=== PATIENT | female | born 2000 | race Caucasian/White ===

== ENCOUNTER 2019-05-22 12:12 | Inpatient (IN) | payer OTHER ==
[~2019-05-22] VITALS: Ht 160 cm; Wt 60.4 kg
[2019-05-22] VITALS (16 sets, daily range): BP systolic 104–134; BP diastolic 52–67; PULSE 80–136; RESP 16–25; Ht 160 cm; Wt 60.4 kg
[~2019-05-22 12:12] MED LIST: AMOX1TAB10 PO; DOCU-144 PO; IBUP-1542 PO
[2019-05-22] MEDS ORDERED: ONDANSETRON 4 MG INJ IV STA (13:11)
[2019-05-22] MEDS ORDERED: SOD CHLORIDE 0.9% 1,000 ML IV STA (13:11)
[2019-05-22] MEDS ORDERED: morphine 4 MG/ML VIAL IV STA (13:11)
[2019-05-22] MEDS ORDERED: SOD CHLORIDE 0.9% 100 ML ONE (14:13)
[2019-05-22] MEDS ORDERED: IOHEXOL 300MG/ML 150 ML BTL ONE (14:13)
[2019-05-22] MEDS ORDERED: PIPER-TAZO 3.375 GM IV (PMX) 100 ML IVPB STA (15:03)
[2019-05-22] MEDS ORDERED: D5W-0.45 NACL + KCL 20 MEQ 1,000 ML IV STA (15:03)
--- NOTE | 2019-05-22 15:28 | ERD ---
ER Documentation Chief Complaint Chief Complaint RLQ ABD PAIN WITH NAUSEA STARTING TODAY. HPI 19-year-old female presenting with right lower quadrant pain that started last night and has progressively worsened. The pain is a 9 out of 10, stabbing, nonradiating, with associated nausea and vomiting. worsened by movement , No alleviating factors. She does feel subjective fevers and chills. No diarrhea or constipation. No vaginal discharge or bleeding. Last menstrual period was about 2 weeks ago. ROS All systems reviewed and are negative except as per history of present illness. Medications Home Meds No Active Prescriptions or Reported Meds Allergies Allergies: Coded Allergies: No Known Allergy (Unverified , 05/22/19) PMhx/Soc Medical and Surgical Hx: pt denies Medical Hx, pt denies Surgical Hx Hx Alcohol Use: No Hx Substance Use: No Hx Tobacco Use: No Smoking Status: Never smoker FmHx Family History: No diabetes Physical Exam Vitals Vital Signs Date Temp Pulse Resp B/P (MAP) Pulse Ox O2 O2 Flow FiO2 Time Delivery Rate 05/22/19 103 18 118/78 99 Room Air 17:00 (91) 05/22/19 99 20 116/83 99 Room Air 16:00 (94) 05/22/19 97.0 90 16 110/63 99 12:41 (79) Physical Exam Const: No acute distress Head: Atraumatic Eyes: Normal Conjunctiva ENT: Normal External Ears, Nose and Mouth. Neck: Full range of motion. No meningismus. Resp: Clear to auscultation bilaterally Cardio: Regular rate and rhythm, no murmurs Abd: Soft, tenderness to palpation McBurney's point with no generalized peritonitis. Non distended. Normal bowel sounds Skin: No petechiae or rashes Back: No midline or flank tenderness Ext: No cyanosis, or edema Neur: Awake and alert Psych: Normal Mood and Affect Result Diagram: 05/22/19 1322 05/22/19 1322 Results 24 hrs Laboratory Tests Test 05/22/19 13:22 05/22/19 13:32 05/22/19 15:49 White Blood Count 20.1 10^3/ul Red Blood Count 5.11 10^6/ul Hemoglobin 13.8 g/dl Hematocrit 42.2 % Mean Corpuscular Volume 82.6 fl Mean Corpuscular Hemoglobin 27.0 pg Mean Corpuscular 32.7 g/dl Hemoglobin Concent Red Cell Distribution Width 12.7 % Platelet Count 156 10^3/UL Mean Platelet Volume 12.1 fl Immature Granulocytes % 0.400 % Neutrophils % 90.2 % Segmented Neutrophils % (Manual) 83 % Band Neutrophils % (Manual) 9 % Lymphocytes % 6.2 % Lymphocytes % (Manual) 6 % Monocytes % 2.5 % Monocytes % (Manual) 2 % Eosinophils % 0.4 % Basophils % 0.3 % Nucleated Red Blood Cells % 0.0 /100WBC Immature Granulocytes # 0.080 10^3/ul Neutrophils # 18.1 10^3/ul Neutrophils # (Manual) 17.0 10^3/ul Band Neutrophils # 1.8 10^3/ul Lymphocytes (Manual) 1.2 10^3/ul Lymphocytes # 1.2 10^3/ul Monocytes # 0.5 10^3/ul Monocytes # (Manual) 0.4 10^3/ul Eosinophils # 0.1 10^3/ul Basophils # 0.1 10^3/ul Nucleated Red Blood Cells # 0.0 10^3/ul Platelet Estimate NORMAL Giant Platelets 1 % Poikilocytosis 1+ Anisocytosis 1+ Urine Color YELLOW Urine Clarity CLOUDY Urine pH 6.0 Urine Specific [place] 1.023 Urine Ketones 1+ mg/dL Urine Nitrite NEGATIVE mg/dL Urine Bilirubin NEGATIVE mg/dL Urine Urobilinogen NEGATIVE mg/dL Urine Leukocyte Esterase 2+ Myriam/ul Urine Microscopic RBC 2 /HPF Urine Microscopic WBC 9 /HPF Urine Squamous Epithelial Cells MODERATE /HPF Urine Bacteria FEW /HPF Urine Mucus FEW /HPF Urine Hemoglobin NEGATIVE mg/dL Urine Glucose NEGATIVE mg/dL Urine Total Protein NEGATIVE mg/dl Sodium Level 139 mmol/L Potassium Level 4.3 mmol/L Chloride Level 108 mmol/L Carbon Dioxide Level 18 mmol/L Anion Gap 13 Blood Urea Nitrogen 12 mg/dl Creatinine 0.88 mg/dl Est Glomerular Filtrat > 60 mL/min Rate mL/min Glucose Level 108 mg/dl Calcium Level 9.8 mg/dl Total Bilirubin 0.3 mg/dl Direct Bilirubin 0.00 mg/dl Indirect Bilirubin 0.3 mg/dl Aspartate Amino Transf (AST/SGOT) 49 IU/L Alanine 37 IU/L Aminotransferase (ALT/SGPT) Alkaline Phosphatase 67 IU/L Total Protein 8.8 g/dl Albumin 4.6 g/dl Globulin 4.20 g/dl Albumin/Globulin Ratio 1.09 POC Beta HCG, Qualitative NEGATIVE POC Venous Lactate 1.4 mmol/L Current Medications Medications Dose Sig/Marisabel Start Time Status Last (Trade) Ordered Route PRN Stop Time Admin Dose Reason Admin Sodium 1,000 ml @ Q1H STAT 05/22/19 DC 05/22/19 Chloride 1,000 mls/hr IV 13:11 13:24 05/22/19 14:10 Morphine 4 mg ONCE STAT 05/22/19 DC 05/22/19 Sulfate IV 13:11 13:24 (morphine) 05/22/19 13:14 Ondansetron 4 mg ONCE STAT 05/22/19 DC 05/22/19 HCl (Zofran IV 13:11 13:24 Inj) 05/22/19 13:14 IV Flush 10 ml STK-MED 05/22/19 DC (NS 10 ml) ONCE .ROUTE 14:13 05/22/19 14:14 Sodium 100 ml @ ud STK-MED 05/22/19 DC Chloride ONCE .ROUTE 14:13 05/22/19 14:14 Iohexol 150 ml STK-MED 05/22/19 DC (Omnipaque ONCE .ROUTE 14:13 300mg/ ml) 05/22/19 14:14 Potassium 1,000 ml @ Q8H STAT 05/22/19 05/22/19 Chloride/Dext 125 mls/hr IV 15:03 15:19 manuel/ Sod Cl 05/22/19 23:02 Piperacillin 100 ml @ ONCE STAT 05/22/19 DC 05/22/19 Sod/ 200 mls/hr IVPB 15:03 15:19 Tazobactam 05/22/19 15:32 Sod Ondansetron 4 mg BRIDGE ORDER 05/22/19 HCl (Zofran PRN IV 15:30 Inj) NAUSEA/VOMITI 05/23/19 15:29 NG 650 mg ER BRIDGE 05/22/19 Acetaminophen PRN PO 15:30 (Tylenol .MILD PAIN 05/23/19 15:29 Tab) 1-3 OR TEMP Procedures/MDM EMERGENT LABS AND DIAGNOSTIC STUDIES: Lab Results above were reviewed and interpreted by me. CBC: leukocytosis, consistent with acute infection CMP: No evidence of clinically significant electrolyte abnormality, acidosis, renal failure, hypoglycemia, liver disease, or biliary obstruction negative UA: no evidence of infection Lactate within normal limits, no evidence of severe sepsis or septic shock Radiology Results as interpreted by Radiology below were reviewed by Maximiliano Robbins MD: CT abdomen and pelvis shows acute appendicitis Initial Nursing notes reviewed. Previous Medical Records requested via the Electronic Health Record. EMERGENCY DEPARTMENT COURSE / MEDICAL DECISION MAKING: Patient presenting with right lower quadrant pain and work-up consistent with acute appendicitis. No evidence of severe sepsis or septic shock. Spoke with Dr. Gilbert, the surgeon on-call, who is aware of the patient. IV placed, antibiotics given. Pain well controlled with pain medications. She will be admitted to Dr. Rojas due to her insurance. Departure Diagnosis: Primary Impression: Acute appendicitis Acute appendicitis type: with localized peritonitis Appendicitis gangrene presence: without gangrene Appendicitis perforation presence: without perforation Appendicitis abscess presence: without abscess Qualified Co leonardo: K35.30 - Acute appendicitis with localized peritonitis, without perforation or gangrene Condition: ALEXANDER Modi MD May 22, 2019 15:28
[2019-05-22] MEDS ORDERED: ACETAMINOPHEN 325 MG TAB PO PRN ×2 (15:30→21:30)
[2019-05-22] MEDS ORDERED: ONDANSETRON 4 MG INJ IV PRN ×3 (15:30→21:30)
--- NOTE | 2019-05-22 18:28 | CONS ---
Assessment/Plan Assessment/Plan Assessment/Plan (Daily) signs and symptoms conmsistent with acute appenduicit s, without sign of rupture rec laparoscopic appendectomy open , possible open details , risks benefits discussed . patient wishes to proceed . Consultation Date/Type/Reason Admit Date/Time May 22, 2019 at 15:21 Date of Consultation: May 22, 2019 Type of Consult general surgery Reason for Consultation abdominal pain , suspect appendicitis by CT Date/Time of Note DATE: 05/22/19 TIME: 18:23 Hx of Present Illness patient came to ER with pain since last night , worsening over night , nausea , miod abdomen , migrating to RLQ / CT consistent with acute appendciitis Past Medical History Home Meds No Active Prescriptions or Reported Meds Medications Current Medications Potassium Chloride/Dextrose/ Sod Cl 1,000 ml @ 125 mls/hr Q8H STAT IV Last administered on 05/22/19at 15:19; Admin Dose 125 MLS/HR; Start 05/22/19 at 15:03; Stop 05/22/19 at 23:02 Ondansetron HCl (Zofran Inj) 4 mg BRIDGE ORDER PRN IV NAUSEA/VOMITING; Start 05/22/19 at 15:30; Stop 05/23/19 at 15:29 Acetaminophen (Tylenol Tab) 650 mg ER BRIDGE PRN PO .MILD PAIN 1-3 OR TEMP; Start 05/22/19 at 15:30; Stop 05/23/19 at 15:29 Allergies: Coded Allergies: No Known Allergy (Unverified , 05/22/19) Social History Smoking Status: Never smoker Exam/Review of Systems Exam Vitals Vital Signs Date Temp Pulse Resp B/P (MAP) Pulse Ox O2 O2 Flow FiO2 Time Delivery Rate 05/22/19 98.8 94 18 126/67 98 18:05 (86) 05/22/19 Room Air 17:00 Exam awake and alert , complining of right sided abdominal pain lungs clear Cor reg rate and rhtym Abd soft , moderate tenderness right lowe quadrant Results Result Diagram: 05/22/19 1322 05/22/19 1322 Results 24hrs Laboratory Tests Test 05/22/19 13:22 05/22/19 13:32 05/22/19 15:49 White Blood Count 20.1 H Red Blood Count 5.11 Hemoglobin 13.8 Hematocrit 42.2 Mean Corpuscular Volume 82.6 Mean Corpuscular Hemoglobin 27.0 L Mean Corpuscular Hemoglobin Concent 32.7 Red Cell Distribution Width 12.7 Platelet Count 156 Mean Platelet Volume 12.1 H Immature Granulocytes % 0.400 Neutrophils % 90.2 H Segmented Neutrophils % (Manual) 83 H Band Neutrophils % (Manual) 9 Lymphocytes % 6.2 L Lymphocytes % (Manual) 6 L Monocytes % 2.5 Monocytes % (Manual) 2 Eosinophils % 0.4 Basophils % 0.3 Nucleated Red Blood Cells % 0.0 Immature Granulocytes # 0.080 H Neutrophils # 18.1 H Neutrophils # (Manual) 17.0 H Band Neutrophils # 1.8 H Lymphocytes (Manual) 1.2 Lymphocytes # 1.2 Monocytes # 0.5 Monocytes # (Manual) 0.4 Eosinophils # 0.1 Basophils # 0.1 Nucleated Red Blood Cells # 0.0 Platelet Estimate NORMAL Giant Platelets 1 H Poikilocytosis 1+ Anisocytosis 1+ Urine Color YELLOW Urine Clarity CLOUDY A Urine pH 6.0 Urine Specific [place] 1.023 Urine Ketones 1+ H Urine Nitrite NEGATIVE Urine Bilirubin NEGATIVE Urine Urobilinogen NEGATIVE Urine Leukocyte Esterase 2+ H Urine Microscopic RBC 2 Urine Microscopic WBC 9 H Urine Squamous Epithelial Cells MODERATE Urine Bacteria FEW A Urine Mucus FEW A Urine Hemoglobin NEGATIVE Urine Glucose NEGATIVE Urine Total Protein NEGATIVE Sodium Level 139 Potassium Level 4.3 Chloride Level 108 Carbon Dioxide Level 18 L Anion Gap 13 Blood Urea Nitrogen 12 Creatinine 0.88 Est Glomerular Filtrat Rate mL/min > 60 Glucose Level 108 Calcium Level 9.8 Total Bilirubin 0.3 Direct Bilirubin 0.00 Indirect Bilirubin 0.3 Aspartate Amino Transf (AST/SGOT) 49 H Alanine Aminotransferase (ALT/SGPT) 37 Alkaline Phosphatase 67 Total Protein 8.8 H Albumin 4.6 Globulin 4.20 H Albumin/Globulin Ratio 1.09 POC Beta HCG, Qualitative NEGATIVE POC Venous Lactate 1.4 Medications Medication Current Medications Potassium Chloride/Dextrose/ Sod Cl 1,000 ml @ 125 mls/hr Q8H STAT IV Last administered on 05/22/19at 15:19; Admin Dose 125 MLS/HR; Start 05/22/19 at 15:03; Stop 05/22/19 at 23:02 Ondansetron HCl (Zofran Inj) 4 mg BRIDGE ORDER PRN IV NAUSEA/VOMITING; Start 05/22/19 at 15:30; Stop 05/23/19 at 15:29 Acetaminophen (Tylenol Tab) 650 mg ER BRIDGE PRN PO .MILD PAIN 1-3 OR TEMP; Start 05/22/19 at 15:30; Stop 05/23/19 at 15:29 SHANI BRANDT MD May 22, 2019 18:28
[2019-05-22] MEDS ORDERED: SOD CHLORIDE 0.9% 1,000 ML IV SCH (19:00)
[2019-05-22] MEDS ORDERED: morphine 2 MG INJ IV PRN (19:00)
[2019-05-22] MEDS ORDERED: BUPIVACAINE 0.25%/EPI (SDV) 30 ML INJ ONE ×2 (19:23→19:28)
[2019-05-22] MEDS ORDERED: FENTAnyl 50 MCG/ML VIAL ONE ×2 (19:28→20:27)
[2019-05-22] MEDS ORDERED: GLYCOPYRROLATE 0.4 MG INJ ONE (19:28)
[2019-05-22] MEDS ORDERED: CEFAZOLIN 1 GM INJ ONE (19:28)
[2019-05-22] MEDS ORDERED: NEOSTIGMINE 3 MG/3 ML SYRINGE ONE (19:28)
[2019-05-22] MEDS ORDERED: ROCURONIUM 50 MG INJ ONE (19:28)
[2019-05-22] MEDS ORDERED: PROPOFOL 20 ML ONE (19:28)
[2019-05-22] MEDS ORDERED: DEXAMETHASONE 4 MG/ML 5 ML INJ ONE (19:28)
[2019-05-22] MEDS ORDERED: ONDANSETRON 4 MG INJ ONE (19:28)
[2019-05-22] MEDS ORDERED: MIDAZOLAM 1 MG/ML 2 ML INJ ONE (19:28)
[2019-05-22] MEDS ORDERED: ROPIVACAINE 0.5 % 30 ML VIAL ONE (19:32)
--- NOTE | 2019-05-22 19:40 | PREAC ---
Date/Time of Note Date/Time of Note DATE: 05/22/19 TIME: 19:39 Anesthesia Eval and Record Evaluation Time Pre-Procedure Interview DATE: 05/22/19 TIME: 19:39 Age 19 Sex female NPO: 8 hrs Preoperative diagnosis ACUTE APPENDICITIS Planned procedure LAP APPENDECTOMY Past Medical History Past Medical History: None Surgery & Anesthesia Issues No known issue Meds Anticoagulation: No Beta Alba within 24 hr: No Reason Beta Alba not given: Pt. not on B-Alba No Active Prescriptions or Reported Meds Current Medications Sodium Chloride 1,000 ml @ 100 mls/hr Q10H IV ; Start 05/22/19 at 19:00 Piperacillin Sod/ Tazobactam Sod 100 ml @ 200 mls/hr Q8 IVPB ; Start 05/22/19 at 22:00 Ondansetron HCl (Zofran Inj) 4 mg Q6H PRN IV NAUSEA AND/OR VOMITING; Start 05/22/19 at 19:00 Pantoprazole (Protonix Iv) 40 mg DAILY@06 IV ; Start 05/23/19 at 06:00 Morphine Sulfate (morphine) 2 mg Q4H PRN IV SEVERE PAIN LEVEL 7-10; Start 05/22/19 at 19:00 Meds reviewed: Yes Allergies Coded Allergies: No Known Allergy (Unverified , 05/22/19) Allergies Reviewed: Yes Labs/Studies Labs Reviewed: Reviewed by anesthesiologist Result Diagram: 05/22/19 1322 05/22/19 1322 Laboratory Tests 05/22/19 13:22 test: Negative Pre-procedure Exam Last vitals Vital Signs Date Temp Pulse Resp B/P (MAP) Pulse Ox O2 O2 Flow FiO2 Time Delivery Rate 05/22/19 98.8 94 18 126/67 98 18:05 (86) 05/22/19 Room Air 17:00 Airway: Adequate mouth opening, Adequate thyromental dist Mallampati: Mallampati II Teeth: Normal Lung: Normal Heart: Normal ASA Physical Status ASA physical status: 1 Emergency: None Planned Anesthetic General/MAC: ETT Nerve block: TAP (bilateral) Planned Pain Management Parenteral pain med Pre-operative Attestations Prior to commencing anesthesia and surgery, the patient was re-evaluated, there was verification of: *The patient's identity *The results of appropriate recent lab work and preoperative vital signs *The above evaluation not changing prior to induction *Anesthetic plan, risk benefits, alternative and complications discussed with patient/family; questions answered; patient/family understands, accepts and wishes to proceed. Mohan Reynoso M.D. May 22, 2019 19:40
[2019-05-22] MEDS ORDERED: KETOROLAC 30 MG INJ ONE (20:27)
--- NOTE | 2019-05-22 21:10 | OPR ---
Date/Time of Note Date/Time of Note DATE: 05/22/19 TIME: 21:06 Operative Report Free Text/Dictation Operative report Procedure Date: May 22, 2019 Preoperative Diagnosis Acute appendicitis Postoperative Diagnosis Acute separative appendicitis Operation/Procedure Performed Laparoscopic appendectomy Surgeon Shani Gilbert MD see signature line Supervisor Felling Bucking None Anesthesia Type: general Anesthesiologist: Mohan Reynoso M.D. Estimated Blood Loss: minimal Transfusion none Specimen Appendix Grafts/Implants none Tubes/Drains None Complications none Pt Condition Post Procedure: stable Disposition: PACU Indications Abdominal pain progressive over 24 hours patient presented to the emergency room evaluation including imaging and lab tests revealed highly suspicious for acute appendicitis surgical consultation obtained I recommended that the patient undergo upper scopic appendectomy details the procedure risk benefits alternatives were discussed patient agreed to proceed and she was brought promptly to the operating room Procedure Description Patient was brought to the operating placed supine position general she is administered with intubation patient prepped draped standard sterile fashion o rogastric tube inserted by anesthesia timeout was completed Veress needle was used left upper quadrant Haider's point insufflation delivered to maintain pneumoperitoneum 50 mils mercury throughout the procedure small stab incision was made just above the umbilicus and a 5 mm trocar was inserted under direct visualization with 35 Corley laparoscope the Veress needle was removed and infraumbilical 5 Corley trocar suprapubic 1200 trocar were inserted next atraumatic graspers used to explore the right lower quadrant the appendix was quickly identified with a marked dilated thickened fibrinous covered distal third. Omentum was stuck to this was peeled away bluntly. A window was made in the mesoappendix with a [place] dissector and a Platea 45 mm vascular car tridge used to divide the appendix at the base. Hook cautery was then used to score the peritoneum on the lateral side of the appendix and the appendix was then brought elevated and a second application of the stapler was used to divide the mesoappendix. A small oozing on the staple line was controlled with monopolar cautery. A specimen bag was inserted through the 12 mm port and the appendix was in this as it was removed. Final inspection for hemostasis showed good hemostasis. The pneumoperitoneum was allowed to escape as the trochars were watery direct visualization were removed skin incisions were closed with 4- 0 Monocryl Dermabond for skin. Patient tolerated procedure well no complications patient was explained the operative brought recovery in stable condition SHANI GILBERT MD May 22, 2019 21:10
[2019-05-22] MEDS ORDERED: MEPERIDINE 25 MG INJ ONE (21:11)
--- NOTE | 2019-05-22 21:14 | PAC ---
Date/Time of Note Date/Time of Note DATE: 05/22/19 TIME: 21:14 Post-Anesthesia Notes Post-Anesthesia Note Last documented vital signs Vital Signs Date Temp Pulse Resp B/P (MAP) Pulse Ox O2 O2 Flow FiO2 Time Delivery Rate 05/22/19 98.0 21:13 05/22/19 93 16 116/63 100 19:18 (80) 05/22/19 Room Air 17:00 Activity: WNL Respiratory function: WNL Cardiovascular function: WNL Mental status: Baseline Pain reasonably controlled: Yes Hydration appropriate: Yes Nausea/Vomiting absent: Yes Mohan Reynoso M.D. May 22, 2019 21:14
[2019-05-22] MEDS ORDERED: KETOROLAC 15 MG INJ IV PRN (21:30)
[2019-05-22] MEDS ORDERED: FENTAnyl 50 MCG/ML VIAL IV PRN (21:30)
[2019-05-22] MEDS ORDERED: HYDROmorphONE 1 MG/5 ML IV SYRINGE IV PRN (21:30)
[2019-05-22] MEDS: PIPER-TAZO 3.375 GM IV (PMX) 100 ML IVPB SCH (22:00)
[2019-05-22] MEDS ORDERED: MEPERIDINE 25 MG INJ IV PRN (22:00)
[2019-05-22] MEDS: D5-NS + KCL 20 MEQ 1,000 ML IV SCH (23:04)
[2019-05-23 00:10] VITALS: BP 102/55; PULSE 76; RESP 16
[2019-05-23 01:20] VITALS: BP 106/56; PULSE 81; RESP 15
[2019-05-23] MEDS: PIPER-TAZO 3.375 GM IV (PMX) 100 ML IVPB SCH ×2 (05:42→14:39)
[2019-05-23] MEDS ORDERED: PANTOPRAZOLE 40 MG INJ IV SCH (06:00)
[2019-05-23] MEDS: D5-NS + KCL 20 MEQ 1,000 ML IV SCH ×2 (06:15→12:10)
[2019-05-23 07:33] VITALS: BP 109/58; PULSE 73; RESP 17
--- NOTE | 2019-05-23 12:34 | QN ---
Documentation Comment pt seen and examined sp Lap appendectomy pod#1 on soft diet exam: minimal tenderness wbc improved from 20>9 Mild UTI dc home if ok with MORAIMA Carvalho MD May 23, 2019 12:33
--- NOTE | 2019-05-23 12:35 | PDOCDIS ---
Discharge Instructions DIAGNOSIS Discharge Diagnosis acute appendictis s/p appendectomy mild UTI CONDITION [id number] Patient Condition: [id number] Good HOME CARE INSTRUCTIONS: [id number] Special Diet: [id number] SOFT DIET ACTIVITY: [id number] Activity Restrictions: [id number] Slowly Increase Activity Rest between Activity Avoid heavy lifting FOLLOW UP/APPOINTMENTS Follow-up Plan FU PCP in 1-[address] Gilbert in 1 week keep surgical site clean return tO ER if has abdominal pain/fevers/chills MORAIMA KWOK MD May 23, 2019 12:35
[2019-05-23 13:43] VITALS: BP 100/58; PULSE 65; RESP 16
--- NOTE | 2019-05-23 13:47 | HP ---
DATE OF ADMISSION: 05/22/2019 The History and Physical is dictated late as I and Dr. Alvarado were not informed of the admission. The patient was informed that the patient is being admitted when the patient was on the floor, patient h ad already been seen by surgeon yesterday. HISTORY OF PRESENT ILLNESS: This is a 19-year-old female who has no past medical history who present ed to the emergency department complaining of epigastric pain and then radiating to the right lower q uadrant for 1 day. Patient was in usual state of health and started having some epigastric pain and then pain radiated to the right lower quadrant. The patient was also having some nausea and vomiting . 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 She does have some subjective chills and fevers. On admission, vital signs show temperature 97.0, pulse 90, respirations 18, blood pressure 110/63. White count was 20.1, neut rophils were 83, BUN and creatinine within normal limits. test was negative. LFTs within normal limits. The patient had a CT of the abdomen and pelvis that showed acute appendicitis, trace free fluid in the pelvis. No intraperitoneal free air or abscess. Patient went for surgery with Dr. Gilbert and had acute suppurative appendicitis, had laparoscopic appendectomy that was performed on 0 05/22/2019 and currently patient denies any pain. PAST MEDICAL HISTORY: None. ALLERGIES: NONE. HOME MEDICATIONS: None. PAST SURGICAL HISTORY: None. SOCIAL HISTORY: Denies any history of smoking, alcohol or any drug use. 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 Lives with family. REVIEW OF SYSTEMS: Abdominal pain is resolved currently, no episodes of nausea, vomiting, diarrhea. No fevers, chills, no headache, no blurry vision, no chest pain, no shortness of breath, no hemateme sis, melena, bright red per rectum. No neuro deficits. PHYSICAL EXAMINATION: VITAL SIGNS: Currently, blood pressure 109/58, afebrile, pulse 73, respiratory rate 17, saturating 9 6%. GENERAL: The patient is awake, alert, oriented, does not appear to be in any acute distress. HEENT: Pupils equal, round, reactive to light. NECK: Supple, no JVD. HEART: Regular rhythm. LUNGS: Clear to auscultate bilaterally. ABDOMEN: The patient has well-healed surgical scars with minimal tenderness. Positive bowel sounds. EXTREMITIES: No clubbing, cyanosis, or edema. The patient had multiple tattoos present on the arms. DIAGNOSTIC DATA: BMP within normal limit. White count was 20, currently 9.2, hemoglobin 12.2, plate let count 204. UA showed 9 WBCs, 1+ ketones, few bacteria. A CT of the abdomen and pelvis, acute ap pendicitis. ASSESSMENT AND PLAN: This is a 19-year-old female with: 1. Acute appendicitis status post laparoscopic appendectomy. 2. Leukocytosis secondary to #1. 3. Mild urinary tract infection. PLAN: At this period of time, the patient is admitted to med/surg. The patient is tolerating the di et. The patient is on IV antibiotics, ibuprofen and fluids. We will check with Dr. Gilbert if the pa tient can be discharged today. Rest of the treatment will depend on the patient's hospitalization co marya. Dictated By: MORAIMA JOHNSON/ROMAN Conf#: [id number] DID#: [id number] CC: JENNIFER ALVARADO MD;*EndCC*
--- NOTE | 2019-05-24 06:48 | DS ---
DATE OF ADMISSION: 05/22/2019 DATE OF DISCHARGE: 05/23/2019 HISTORY OF PRESENT ILLNESS AND HOSPITAL COURSE: This is a 19-year-old female who presented to the Em ergency Department complaining of epigastric pain radiating to the right lower quadrant for 1 day. O n admission, patient had a CT of the abdomen and pelvis that showed acute appendicitis, trace free fl uid in the pelvis. White count was 20,000. The patient was seen by Dr. Gilbert and went for appendec alexys. Postop, the patient was doing much better. Her pain was better. Leukocytosis had improved. The patient was given IV Zosyn. Currently, the patient is able to tolerate the diet and is able to a mbulate and is stable to be discharged home. Patient also had mild UTI on the UA and was currently b eing discharged with amoxicillin for 3 days. FINAL DISCHARGE DIAGNOSES: 1. Acute appendicitis status post appendectomy. 2. Leukocytosis from , due to appendicitis. 3. Mild urinary tract infection. DISCHARGE CONDITION: Stable. DISCHARGE DIET: Regular, soft diet. RECOMMENDATIONS: The patient was instructed to follow up with PCP in 1 to 2 weeks and follow up with surgery, Dr. Gilbert in 1 to 2 weeks and return to the ER if she has severe abdominal pain, nausea, v omiting, fevers and chills. DISCHARGE MEDICATION: 1. Amoxicillin 1 tab p.o. b.i.d. for 3 days. 2. Colace 100 mg p.o. b.i.d. p.r.n. constipation. 3. Ibuprofen p.r.n. pain. Dictated By: MORAIMA JOHNSON/ROMAN Conf#: [id number] DID#: [id number]
[2019-05-24] MEDS ORDERED: IBUPROFEN 600 MG TAB PO PRN (21:30)
== END 2019-05-23 16:57 | disposition home or self-care (01) | DRG 342 ==
LOC: FTE 12:12 → 2NE 15:21
PROVIDERS: ADMIT Internal Medicine Nephrology; ATTEND Internal Medicine Nephrology
PROC: 0DTJ4ZZ Resection of Appendix, Percutaneous Endoscopic Approach (ICD-10-PCS; principal; 2019-05-22 20:00)
DX: K35.80 Unspecified acute appendicitis (principal); N39.0 Urinary tract infection, site not specified
CPT/HCPCS: 36415; 74177; 80048; 80053; 81001; 81025; 83605; 85025; 88304; 96374; 96375; C9113; J0690; J1100; J1885; J2175; J2250; J2270; J2405; J2543; J2710; J2795; J3010; J3480; J7030; Q9967